=== PATIENT | female | born 1935 | race Caucasian/White ===

== ENCOUNTER 2021-11-30 15:51 | Emergency (ER) | payer OTHER ==
[~2021-11-30] VITALS: Ht 154.9 cm; Wt 54.4 kg
[2021-11-30 15:51] VITALS: BP 156/76
--- NOTE | 2021-11-30 15:51 | NUR ---
86 Y/O F BIBA, C/O TRIP IN FALL, LACERATION TO BACK OF HEAD, PT DENIES LOC, PT A&O X4. ALLERGIES: ACTONEL, CIPRO, PCN, SULFA PMH: HTN, GERD, PRE DM, OSTEOPROSIS
--- NOTE | 2021-11-30 15:55 | NUR ---
Yaima kowalski in [facility] - 11/30/21 at 1832 by [facility] BIBA BLS TO ER BED 2
--- NOTE | 2021-11-30 15:56 | NUR ---
ER MD LANE PT
[2021-11-30] MEDS ORDERED: LIDOCAINE/EPI 2% 1:100000 20 ML VIAL INJ ONE (16:55)
[2021-11-30] MEDS ORDERED: BACI1PAC6 TP (17:22)
--- NOTE | 2021-11-30 17:35 | NUR ---
Patient discharged with v/s stable. Written and verbal after care instructions given and explained. Patient alert, oriented and verbalized understanding of instructions. Ambulatory with to car. All questions addressed prior to discharge. ID band removed. Patient advised to follow up with PMD. Rx of BACITRACIN OINT given. Patient educated on indication of medication including possible reaction and side effects. Opportunity to ask questions provided and answered.
--- NOTE | 2021-11-30 17:53 | NUR ---
SPOKE TO PT DAUGHTER LUI SHE GAVE OK FOR PT TO GO HOME IN A TAXES. YELLOW CAB EAT 45MINS.
[2021-11-30 18:11] VITALS: BP 147/70
== END 2021-11-30 17:35 | disposition home or self-care (01) ==
LOC: MED 15:51
DX: S01.01XA Laceration without foreign body of scalp, initial encounter (principal); E11.9 Type 2 diabetes mellitus without complications; K21.9 Gastro-esophageal reflux disease without esophagitis; I10 Essential (primary) hypertension; Z88.0 Allergy status to penicillin; Z88.1 Allergy status to other antibiotic agents; Z88.8 Allergy status to other drugs, medicaments and biological substances; W22.8XXA Striking against or struck by other objects, initial encounter; Y93.89 Activity, other specified; Y92.89 Other specified places as the place of occurrence of the external cause; Y99.8 Other external cause status
CPT/HCPCS: 12002; 90471; 90715; 99283; J2001